=== PATIENT | female | born 1960 | race Hispanic/Latino ===

== ENCOUNTER 2022-11-27 14:15 | Emergency (ER) | payer BC ==
[~2022-11-27] VITALS: Ht 157.5 cm; Wt 61.2 kg
[2022-11-27 16:09] LABS: BASOPHILS % (AUTO) 0.2 % (0.0-5.0); EOSINOPHILS % (AUTO) 0.7 % (0.0-8.0); HEMATOCRIT 34.8 % (36-48); LYMPHOCYTES % (AUTO) 32.9 % (21.0-51.0); MEAN CORPUSCULAR HEMOGLOBIN 30.2 pg (27.0-33.0); MEAN CORPUSCULAR HGB CONC 33.9 g/dL (32.0-36.0); MONOCYTES % (AUTO) 7.5 % (3.0-13.0); NEUTROPHILS % (AUTO) 58.4 % (40.0-77.0); PLATELET COUNT (AUTO) 229 K/uL (130-400); RED BLOOD CELL COUNT(AUTO) 3.91 MIL/uL (4.00-5.50); RED CELL DISTRIBUTION WIDTH 13.2 % (11.0-15.5); WHITE BLOOD COUNT (AUTO) 6.1 K/uL (4.8-10.8)
[2022-11-27 16:22] LABS: CREATININE 0.6 mg/dL (0.5-1.5); POTASSIUM 3.9 mmol/L (3.5-5.1)
[2022-11-27 16:31] LABS: ALBUMIN 3.8 g/dL (3.5-5.0); TOTAL PROTEIN, SERUM 7.2 g/dL (6.0-8.3)
[2022-11-27] MEDS ORDERED: 0.9%NACL 1000ML 1,000 ML IV ONE (17:30)
[2022-11-27] MEDS ORDERED: ONDANSETRON 4MG INJ IVP ONE (17:30)
[2022-11-27 19:01] VITALS: BP 134/60
[2022-11-27] MEDS ORDERED: ONDA4TAB10 PO (19:28)
[2022-11-27] MEDS ORDERED: ESOM40CA PO (19:28)
== END 2022-11-27 19:43 | disposition home or self-care (01) ==
LOC: EDH 14:15
DX: K29.00 Acute gastritis without bleeding (principal); Z79.899 Other long term (current) drug therapy; Z20.822 Contact with and (suspected) exposure to COVID-19
CPT/HCPCS: 99285; 74176; 96374; 76705; 71045; 96361; 87635; 84484; 80053; 85025; 87804 ×2; 36415; 93005; C9803; J7030; J2405

== ENCOUNTER 2024-03-16 22:27 | Emergency (ER) | payer BC ==
[~2024-03-16] VITALS: Ht 152.4 cm; Wt 71.7 kg
[~2024-03-16 22:27] MED LIST: ESOM40CA PO; ONDA-243 PO
[2024-03-16] MEDS: AMOX/CLAV 875/125MG TAB PO ONE (23:14)
[2024-03-16] MEDS ORDERED: AMOX1TAB16 PO (23:19)
[2024-03-16 23:30] VITALS: BP 124/82; PULSE 82; RESP 16; O2SAT 98
== END 2024-03-16 23:33 | disposition home or self-care (01) ==
LOC: EDH 22:27
DX: S81.831A Puncture wound without foreign body, right lower leg, initial encounter (principal); Z79.899 Other long term (current) drug therapy; W54.0XXA Bitten by dog, initial encounter; Y93.01 Activity, walking, marching and hiking; Y92.89 Other specified places as the place of occurrence of the external cause; Y99.8 Other external cause status